=== PATIENT | female | born 1960 | race Caucasian/White ===

== ENCOUNTER → 2017-12-04 | Outpatient (CLI) | payer OTHER ==
[~2017-12-04] MED LIST: CALCIUM; HYDROCHLOROTHIA25 MG PO; OMEPRAZOLE40 MG PO; TROSPIUM CHLORI20 MG PO; VITAMIN C; Z B COMPLEX PO; Z BENEFIBER PO; Z.0.ALTACE10 M1 PO; Z.0.SIMVASTATIN20 MG PO; Z.3.CENTRUM SILVER1; [UNRECOGNIZED DRUG - OTHER]; [UNRECOGNIZED DRUG - OTHER] PO; [UNRECOGNIZED DRUG - OTHER] PO
--- NOTE | 2017-12-04 15:39 | Diagnostic Imaging Report ---
PROCEDURE:X-RAY ABDOMEN - KUB COMPARISON:Retrograde pyelogram 06/11/2017. KUB 06/11/2017. INDICATIONS:FOLLOW UP FOR RENAL STONES. DENIES COMPLAINTS FINDINGS: There are no dilated loops of bowel to suggest obstruction. There are no masses or abnormal calcifications. There is no evidence of free air. No acute osseous abnormalities are present. Mild degenerative changes in bilateral SI joints. CONCLUSION: No renal stones. No acute abnormalities. Dictated by: Colby Pike M.D. on 12/04/2017 at 15:41 Electronically approved by: Colby Pike M.D. on 12/04/2017 at 15:41
== END ==
LOC: RAD 14:50
PROVIDERS: ATTEND Urology
DX: N20.0 Calculus of kidney (principal)
CPT/HCPCS: 74018

== ENCOUNTER → 2018-05-05 | Outpatient (CLI) | payer OTHER ==
--- NOTE | 2018-05-05 13:27 | Diagnostic Imaging Report ---
EXAM: Abdomen 1 Views INDICATION: CALCULUS OF KIDNEY COMPARISON: KUB 06/11/2017 FINDINGS: Mild amount of stool in the colon. No dilated loops of small bowel. No renal calculi. No abnormal soft tissue masses. No significant degenerative changes in the lumbar spine and pelvis. IMPRESSION: No renal stones. Signed by: Dr. Colby Pike M.D. on 05/05/2018 1:24 PM
== END ==
LOC: RAD 12:57
PROVIDERS: ATTEND Urology
DX: N20.0 Calculus of kidney (principal)
CPT/HCPCS: 74018

== ENCOUNTER → 2019-04-27 | Outpatient (CLI) | payer OTHER ==
--- NOTE | 2019-04-27 12:38 | Diagnostic Imaging Report ---
Exam: KUB - 2 views Indication: Renal calculi Comparison: KUB of 05/05/2018 Findings: No radiographically apparent renal calculi. Nonobstructive bowel gas pattern. The osseous structures appear unremarkable. Minimally visualized lung bases appear clear. Impression: No radiographic apparent renal calculi Signed by: Cristian Newton MD on 04/27/2019 12:35 PM
== END ==
LOC: RAD 12:02
PROVIDERS: ATTEND Urology
DX: N20.0 Calculus of kidney (principal)
CPT/HCPCS: 74018

== ENCOUNTER → 2020-01-13 | Outpatient (CLI) | payer OTHER ==
--- NOTE | 2020-01-13 10:33 | Diagnostic Imaging Report ---
EXAM: ABDOMEN-1VIEW (KUB) DATE: 01/13/2020 10:00 AM INDICATION: Calculus of kidney COMPARISON: Radiograph from 04/27/2019 FINDINGS: Bowel gas pattern is nonobstructed. No radiographically evident renal calculi or urinary stones are appreciated. No abnormal intra-abdominal calcification is identified. No acute osseous abnormality is identified. IMPRESSION: No radiographically evident renal calculus appreciated. Signed by: Dr. Warner Yusuf MD on 01/13/2020 10:30 AM
--- NOTE | 2020-01-13 10:35 | Diagnostic Imaging Report ---
EXAM: US RENAL RETROPERITONEAL COMP DATE: 01/13/2020 9:52 AM INDICATION: Calculus of kidney, renal cyst COMPARISON: None. FINDINGS: The right kidney is normal in size measuring 11.5 x 4.9 x 5.1 cm with cortical thickness of 1.1 cm. Cortical echogenicity is within normal limits. There is a 1.5 x 1.3 x 1.3 centers simple cyst identified within the superior pole the right kidney. There is no evidence for solid renal mass, hydronephrosis, or shadowing calculi. The left kidney is normal in size measuring 11.0 x 5.7 x 3.6 cm with cortical thickness of 1.4 cm. Cortical echogenicity is within normal limits. There is a 1.0 x 0.8 x 1.0 cm cyst identified within the mid left kidney. Additionally, there is a 3 mm nonobstructive stone identified within the medial/mid left kidney. There is no evidence for solid renal mass or hydronephrosis. The partially distended urinary bladder demonstrates no significant abnormalities. Prevoid volume is 90 cc. Bilateral ureteral jets are noted. IMPRESSION: 3 mm nonobstructing stone identified within the left kidney. Bilateral renal cysts. Otherwise, unremarkable renal ultrasound examination. Signed by: Dr. Warner Yusuf MD on 01/13/2020 10:32 AM
== END ==
LOC: US 09:38
PROVIDERS: ATTEND Urology
DX: N20.0 Calculus of kidney (principal)
CPT/HCPCS: 74018; 76770

== ENCOUNTER → 2020-06-24 | Outpatient (CLI) | payer OTHER ==
--- NOTE | 2020-06-24 15:31 | Diagnostic Imaging Report ---
X-ray abdomen KUB History: Calculus of the kidney Comparison: 01/13/2020 Findings: No calculi seen along the course of the kidneys or the ureters. No calculi overlying the bladder. Bowel gas pattern nonobstructive. No pneumatosis. No aggressive bony lesions. Lung bases clear. Impression: No radiopaque urinary calculi seen. Signed by: Ramo Morse MD on 06/24/2020 3:28 PM
== END ==
LOC: RAD 13:35
PROVIDERS: ATTEND Urology
DX: N20.0 Calculus of kidney (principal)
CPT/HCPCS: 74018

== ENCOUNTER → 2021-03-06 | Outpatient (CLI) | payer OTHER | LOC: RAD 12:52 | PROVIDERS: ATTEND Urology | DX: N20.0 Calculus of kidney (principal) | CPT/HCPCS: 74018 ==